=== PATIENT | female | born 1955 ===

== ENCOUNTER 2018-02-03 20:23 | Emergency (ER) | payer MEDICARE, OTHER ==
[2018-02-03 20:29] VITALS: TEMP 98
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
[2018-02-03 23:12] VITALS: BP 135/76; PULSE 71; RESP 15
[2018-02-03 23:13] VITALS: O2SAT 99
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
== END 2018-02-03 23:12 | disposition home or self-care (01) ==
LOC: H.ER 20:23
DX: R51 Headache (principal); M25.561 Pain in right knee; M25.511 Pain in right shoulder; M25.551 Pain in right hip; V01.00XA Pedestrian on foot injured in collision with pedal cycle in nontraffic accident, initial encounter

== ENCOUNTER 2019-01-15 23:15 | Emergency (ER) | payer MEDICARE, OTHER ==
[2019-01-15 23:44] VITALS: RESP 16
[2019-01-16] MEDS ORDERED: Sodium Chloride 0.9% 1,000 ML IV STA (00:52)
--- NOTE | 2019-01-16 01:04 | ED PDOC ---
HPI: CCC, URI, Sore Throat Time Seen by Provider: 01/16/19 00:46 Chief Complaint (Nursing): Flu-like Symptoms Chief Complaint (Provider): cough, congestion History Per: Patient History/Exam Limitations: no limitations Onset/Duration Of Symptoms: Days (1 week) Additional Complaint(s): 63 y/o female presents for evaluation of cough and congestion x 1 week, worsened as of yesterday. Patient report fever, headache, and bodyaches to start yesterday; taking Tylenol and bfuc-aih-wfhfoir cold medication without improvement. Denies ear pain, throat pain, chest pain, shortness of breath, palpitations, abdominal pain, changes in bowel movements, recent travel, sick contacts. Past Medical History Reviewed: Historical Data, Nursing Documentation, Vital Signs Vital Signs: Last Vital Signs Temp 101.1 F H 01/15/19 23:43 Pulse 112 H 01/15/19 23:43 Resp 16 01/15/19 23:43 BP 139/70 01/15/19 23:43 Pulse Ox 97 01/15/19 23:43 - Medical History PMH: Migraine (last migraine was 30 years ago) - Surgical History Surgical History: - Family History Family History: States: No Known Family Hx - Home Medications Home Medications: Ambulatory Orders Medication Instructions Recorded Acetaminophen/Hydrocodone Bi 1 tab PO QID PRN #10 tab 04/08/15 [Vicodin 300 mg-5 mg] Fluticasone Nasal [Flonase] 1 actuation NS BID #1 bottle 01/16/19 Ibuprofen [Motrin Tab] 1 tab PO Q6 PRN #20 tab 01/16/19 Oseltamivir Cap [Tamiflu] 75 mg PO BID #9 cap 01/16/19 Promethazine DM [Phenergan DM 5 ml PO Q6 PRN #1 bottle 01/16/19 Syrup] - Allergies Allergies/Adverse Reactions: Allergies Allergy/AdvReac Type Severity Reaction Status Date / Time No Known Allergies Allergy Verified 04/08/15 14:20 Review of Systems ROS Statement: Except As Marked, All Systems Reviewed And Found Negative Constitutional: Positive for: Fever ENT: Positive for: Nose Congestion Respiratory: Positive for: Cough Physical Exam - Reviewed Nursing Documentation Reviewed: Yes Vital Signs Reviewed: Yes - Physical Exam Appears: Positive for: Well, Non-toxic, No Acute Distress Head Exam: Positive for: ATRAUMATIC, NORMAL INSPECTION, NORMOCEPHALIC Skin: Positive for: Normal Color Eye Exam: Positive for: Normal appearance ENT: Positive for: Normal ENT Inspection Cardiovascular/Chest: Positive for: Regular Rate, Rhythm Respiratory: Positive for: Normal Breath Sounds Gastrointestinal/Abdominal: Positive for: Normal Exam Back: Positive for: Normal Inspection Extremity: Positive for: Normal ROM Neurological/Psych: Positive for: Awake, Alert, Oriented (x3) - Laboratory Results Result Diagrams: 01/16/19 01:37 01/16/19 01:37 - ECG O2 Sat by Pulse Oximetry: 97 - Radiology X-Ray: Viewed By Ct X-Ray Interpretation: No Acute Disease - Progress ED Course And Treament: -cbc -cmp -lactic acid -influenza -cxr -IV NS bolus -ibuprofen PO -duoneb On re-eval, patient states she is feeling better Patient educated on findings, discharged with rx Tamiflu (dose given in ED),flonase, promethazine DM, iburpofen Advised rest, fluids Follow up with PMD within 2-3 days Return precautions given Disposition - Clinical Impression Clinical Impression: Influenza - Patient ED Disposition Is Patient to be Admitted: No Counseled Patient/Family Regarding: Studies Performed, Diagnosis, Need For Followup, Rx Given - Disposition Disposition: Routine/Home Disposition Time: 02:50 Condition: IMPROVED Prescriptions: Fluticasone Nasal [Flonase] 1 actuation NS BID #1 bottle Ibuprofen [Motrin Tab] 1 tab PO Q6 PRN #20 tab PRN Reason: Fever >100.4 F Oseltamivir Cap [Tamiflu] 75 mg PO BID #9 cap Promethazine DM [Phenergan DM Syrup] 5 ml PO Q6 PRN #1 bottle PRN Reason: Cough Instructions: Flu Forms: [employer] (Khmer) Print Language: SLOVAK
[2019-01-16] MEDS ORDERED: Albuterol-Ipratrop 3 mg / 0.5 (3 ml) UD IH STA ×2 (01:34→01:35)
[2019-01-16 01:40] LABS: BASO % 0.4 % (0.0-2.0); EOS # 0.1 K/uL (0.0-0.7); EOS % 2.8 % (0.0-4.0); HEMOGLOBIN 14.1 g/dL (12.0-16.0); LYMPH # 0.9 K/uL (1.0-4.3); LYMPH % 19.6 % (20.0-40.0); MEAN CELL VOLUME 91.4 fl (81.0-99.0); MEAN CORPUSCULAR HEMOGLOBIN 31.1 pg (27.0-31.0); MEAN CORPUSCULAR HGB CONC 34.1 g/dL (33.0-37.0); MEAN PLATELET VOLUME 9.4 fl (7.2-11.7); MONO # 0.8 K/uL (0.0-0.8); MONO % 17.8 % (0.0-10.0); NEUT # 2.6 K/uL (1.8-7.0); NEUT % 59.4 % (50.0-75.0); RBC 4.51 Mil/uL (3.80-5.20); RED CELL DISTRIBUTION WIDTH 13.4 % (11.5-14.5); WHITE BLOOD COUNT 4.4 K/uL (4.8-10.8)
[2019-01-16 01:49] LABS: ALB/GLOB RATIO 1.1 (1.0-2.1); ALBUMIN 3.9 g/dL (3.5-5.0); ALT/SGPT 32 U/L (9-52); AST/SGOT 25 U/L (14-36); BLOOD UREA NITROGEN 9 mg/dl (7-17); CALCIUM 9.2 mg/dL (8.4-10.2); GFR NON-AFRICAN AMERICAN > 60
[2019-01-16] MEDS ORDERED: Albuterol-Ipratrop 3 mg / 0.5 (3 ml) UD ONE (04:03)
[2019-01-16 08:58] VITALS: BP 119/76; PULSE 84; TEMP 98.9; O2SAT 98
--- NOTE | 2019-01-16 16:56 | RAD ---
Date of service: 01/16/2019 HISTORY: Fever and cough COMPARISON: Comparison chest 09/17/2013 TECHNIQUE: Chest PA and lateral views FINDINGS: LUNGS: No active pulmonary disease. Small elliptical shaped density right upper lung field overlying the right anterior 3rd rib probably represents vessel on end artifact. Follow-up in 2 months could be to assess stability and exclude a parenchymal nodule. PLEURA: No significant pleural effusion identified. No pneumothorax apparent. CARDIOVASCULAR: No aortic atherosclerotic calcification present. Normal cardiac size. No pulmonary vascular congestion. OSSEOUS STRUCTURES: Minor multilevel degenerative spondylosis of the thoracic spine VISUALIZED UPPER ABDOMEN: Normal. OTHER FINDINGS: None. IMPRESSION: Small elliptical shaped density right upper lung field overlying the right anterior 3rd rib probably represents vessel on end artifact. Follow-up in 2 months could be to assess stability and exclude a parenchymal nodule.. Note that this report was placed in PA review folder for follow up
== END 2019-01-16 04:20 | disposition home or self-care (01) ==
LOC: H.ER 23:15
DX: J11.1 Influenza due to unidentified influenza virus with other respiratory manifestations (principal)
CPT/HCPCS: 71046; 80053; 83605; 85025; 87804; 94640; 96360; 99284; J7030